=== PATIENT | male | born 1980 | race African-American/Black ===

== ENCOUNTER 2017-10-31 21:57 | Emergency (ER) | payer OTHER, SELFPAY ==
[2017-10-31] MEDS ORDERED: Ondansetron ODT 4 MG TAB ONE (23:16)
[2017-10-31] MEDS ORDERED: Ketorolac Tromethamine 60 MG/2 ML VIAL ONE (23:16)
== END 2017-11-01 00:56 | disposition home or self-care (01) ==
LOC: ERS 21:57
DX: R50.9 Fever, unspecified (principal); M79.1 Myalgia; Z71.6 Tobacco abuse counseling; F17.210 Nicotine dependence, cigarettes, uncomplicated
CPT/HCPCS: 87081; 87430; 87804; 96372; 99406; J1885; Q0162

== ENCOUNTER 2018-02-11 12:59 | Outpatient (CLI) | payer OTHER ==
--- NOTE | 2018-02-11 15:50 | MRI ---
MRI BRAIN WITHOUT CONTRAST: Date: 02/11/18 HISTORY: Headache. COMPARISON: None. TECHNIQUE: Brain MRI is performed without intravenous Gadolinium administration. Multisequential, multiplanar im aging is performed. FINDINGS: No hemorrhage on the axial gradient echo sequence. Calvarium has a normal marrow signal intensity. Midline brain parenchymal structures are unremarkable . Central arterial flow-voids are maintained. Absent restricted diffusion. Mild mucosal thickening in the paranasal sinuses. No parenchymal mass, mass effect, or midline shift. Brain volume is age-appropriate. Cortical george-wh ite matter differentiation is preserved. Ventricles and sulci are patent and symmetric. There are minimal T2 and FLAIR white matter hyperintensities which are nonspecific. IMPRESSION: 1. Absent restricted diffusion. No acute infarct. 2. No evidence of a parenchymal mass. 3. Scattered nonspecific T2 and FLAIR white matter hyperintensities. Differential considerations inc lude multiple sclerosis, changes from vasculitis, changes from migraine headaches. Lyme disease, othe r demyelinating processes. Correlate clinically. POS: [facility]
--- NOTE | 2018-02-11 15:56 | MRI ---
MRI LUMBAR SPINE WITHOUT CONTRAST: HISTORY: S33.5XXD, sprain of ligament of lumbar spine. Fall from a ladder. COMPARISON: None. FINDINGS: The kidneys are without hydronephrosis. No retroperitoneal adenopathy. The paraspinal musculature is unremarkable. No marrow infiltrative process. The conus medullaris terminates near the inferior endplate of L2. Levels are as follows: L1-L2: Normal disk. No neural foraminal or spinal canal narrowing. L2-L3: Normal disk. No neural foraminal or spinal canal narrowing. L3-L4: There is a left subforaminal and lateral recess posterior disk osteophyte complex. There is a small right subforaminal and lateral recess disk osteophyte complex. There is mild right and moder ate left-sided neural foraminal narrowing with abutment of the left-sided exiting nerve root. L4-L5: Bilateral subforaminal and lateral recess posterior disk osteophyte complexes, larger on the left, with moderate left-sided neural foraminal narrowing and mild to moderate right-sided neural for aminal narrowing. There is abutment of the left exiting nerve root. L5-S1: There is a central posterior disk protrusion extending into the right paracentral zone. Ther e is associated annular fissure with high signal around this tear. There are also small bilateral soriano bforaminal disk osteophyte complexes causing moderate bilateral neural foraminal narrowing with abutm ent of the exiting and traversing nerve roots. IMPRESSION: 1. Central and right paracentral posterior disk protrusion at L5-S1, which abuts the right exiting a nd traversing nerve roots, which could be the source of the patient's symptoms. 2. Mild spondylosis at L3-L4 and L4-L5. POS: [facility]
== END 2018-02-11 13:00 | disposition home or self-care (01) ==
LOC: TBSIIMAG 12:59
PROVIDERS: ATTEND Family Medicine
DX: S33.5XXD Sprain of ligaments of lumbar spine, subsequent encounter (principal); S13.4XXD Sprain of ligaments of cervical spine, subsequent encounter; S23.3XXD Sprain of ligaments of thoracic spine, subsequent encounter; S09.93XD Unspecified injury of face, subsequent encounter; S63.682D Other sprain of left thumb, subsequent encounter; S60.041D Contusion of right ring finger without damage to nail, subsequent encounter; S80.02XD Contusion of left knee, subsequent encounter; M53.3 Sacrococcygeal disorders, not elsewhere classified; R51 Headache; M51.27 Other intervertebral disc displacement, lumbosacral region; M47.816 Spondylosis without myelopathy or radiculopathy, lumbar region
CPT/HCPCS: 70551; 72148

== ENCOUNTER 2018-04-15 15:37 | Outpatient (CLI) | payer OTHER ==
--- NOTE | 2018-04-15 16:05 | ULT ---
SOFT TISSUE SONOGRAM LEFT PALM 04/15/18 HISTORY: Injury to the left palm, bump. FINDINGS: Deep to the subcutaneous tissues at the palmar aspect head of the second metacarpal, a well circumscr ibed heterogeneous hypoechoic areas superficial to the bone is 1.2 cm length x 1.7 cm width x 1.2 cm depth. It does not invade the underlying structures and contains no internal flow. IMPRESSION: Complex lesion deep to the subcutaneous tissues at the palmar aspect of the left first metatarsal hea d shows no aggressive characteristics and may represent a resolving hematoma in the setting of recent trauma to the area. POS: [facility]
== END 2018-04-15 15:38 | disposition home or self-care (01) ==
LOC: BICULT 15:37
PROVIDERS: ATTEND Family Medicine
DX: S63.92XD Sprain of unspecified part of left wrist and hand, subsequent encounter (principal)
CPT/HCPCS: 76999

== ENCOUNTER 2019-12-27 09:23 | Emergency (ER) | payer SELFPAY ==
[2019-12-27] MEDS ORDERED: Ketorolac Tromethamine 30 MG/ML VIAL ONE (10:41)
[2019-12-27] MEDS ORDERED: Morphine 10 MG/ML VIAL ONE (10:42)
[2019-12-27] MEDS ORDERED: Morphine 4 MG/ML VIAL ONE (10:43)
== END 2019-12-27 11:29 | disposition home or self-care (01) ==
LOC: ERS 09:23
DX: M54.5 Low back pain (principal); I10 Essential (primary) hypertension; F17.210 Nicotine dependence, cigarettes, uncomplicated; X50.0XXA Overexertion from strenuous movement or load, initial encounter
CPT/HCPCS: 96372; 99283; J1885; J2270

== ENCOUNTER 2019-12-28 02:30 | Emergency (ER) | payer SELFPAY ==
[2019-12-28] MEDS ORDERED: Acetaminophen 500 MG TAB ONE (03:26)
[2019-12-28] MEDS ORDERED: Diazepam 5 MG TAB ONE (03:26)
[2019-12-28] MEDS ORDERED: Ketorolac Tromethamine 30 MG/ML VIAL ONE (03:26)
[2019-12-28] MEDS ORDERED: Dexamethasone 10 MG/ML VIAL ONE (03:37)
== END 2019-12-28 04:06 | disposition home or self-care (01) ==
LOC: ERS 02:30
DX: M54.5 Low back pain (principal); I10 Essential (primary) hypertension; F17.210 Nicotine dependence, cigarettes, uncomplicated; Z79.899 Other long term (current) drug therapy
CPT/HCPCS: 82274; 96372; 99283; J1100; J1885